=== PATIENT | female | born 1960 | race Two or more races ===

== ENCOUNTER 2018-01-25 10:31 | Outpatient (CLI) | payer OTHER ==
[~2018-01-25 10:31] MED LIST: ACTOS30 MG; ALTACE1.25 M1; ASA81 MG; GLIMEPIRIDE2 MG; METFORMIN HYDRO25 G1; SYNTHROID125 MCG
== END 2018-01-25 10:48 | disposition home or self-care (01) ==
LOC: NUCLEAR 10:31
DX: M81.0 Age-related osteoporosis without current pathological fracture (principal)

== ENCOUNTER 2018-03-24 07:46 | Outpatient (CLI) | payer OTHER | END 2018-03-24 07:57 | disposition home or self-care (01) | LOC: T RESPIRAT 07:46 | DX: R09.02 Hypoxemia (principal) ==

== ENCOUNTER 2021-02-11 10:28 | Outpatient (CLI) | payer OTHER | END 2021-02-11 10:34 | disposition home or self-care (01) | LOC: PPH VACUNA 10:28 | PROVIDERS: ATTEND Emergency Medicine Pediatric Emergency Medicine | DX: Z23 Encounter for immunization (principal) ==

== ENCOUNTER 2022-07-15 09:51 | Emergency (ER) | payer OTHER ==
[~2022-07-15] VITALS: Ht 154.9 cm; Wt 120.7 kg
== END 2022-07-15 12:07 | disposition home or self-care (01) ==
LOC: ER 09:51
DX: M25.561 Pain in right knee (principal); I10 Essential (primary) hypertension; E03.9 Hypothyroidism, unspecified; E11.9 Type 2 diabetes mellitus without complications; Z79.84 Long term (current) use of oral hypoglycemic drugs; Z79.82 Long term (current) use of aspirin

== ENCOUNTER 2022-12-02 11:45 | Inpatient (IN) | payer OTHER ==
[~2022-12-02] VITALS: Ht 154.9 cm; Wt 115.2 kg
[2022-12-02] MEDS ORDERED: ACTOS45 MG PO (13:52)
[2022-12-02] MEDS ORDERED: GLUMETZA1000 MG PO (13:52)
[2022-12-02] MEDS ORDERED: TOPROL XL25 M1 PO (13:53)
[2022-12-02] MEDS ORDERED: GLIMEPIRIDE1 MG PO (13:53)
[2022-12-02] MEDS ORDERED: ALTACE10 MG PO (13:53)
[2022-12-02] MEDS ORDERED: ADULT LOW DOSE81 M1 PO (13:54)
[2022-12-02] MEDS ORDERED: SYNTHROID137 MCG PO (13:54)
[2022-12-02] MEDS ORDERED: HYDROCHLOROTHIA25 MG PO (13:54)
== END 2022-12-09 13:08 | DRG 470 ==
LOC: O/R 12-06 05:05 → SURH 12-06 11:45 → SURG 12-06 16:46
PROVIDERS: ADMIT Orthopaedic Surgery; ATTEND Orthopaedic Surgery
PROC: 0SRC0JZ Replacement of Right Knee Joint with Synthetic Substitute, Open Approach (ICD-10-PCS; principal; 2022-12-06 16:00)
DX: M17.11 Unilateral primary osteoarthritis, right knee (principal); D62 Acute posthemorrhagic anemia; M85.661 Other cyst of bone, right lower leg; I10 Essential (primary) hypertension; E03.9 Hypothyroidism, unspecified; Z96.651 Presence of right artificial knee joint; Z20.822 Contact with and (suspected) exposure to COVID-19